=== PATIENT | male | born 1995 | race Caucasian/White ===

== ENCOUNTER 2019-06-02 17:53 | Emergency (ER) | payer MEDICAID ==
[~2019-06-02] VITALS: Ht 167.6 cm; Wt 73.0 kg
[2019-06-02 19:30] VITALS: BP 133/94
== END 2019-06-02 20:03 | disposition home or self-care (01) ==
LOC: ED 19:57
DX: F41.1 Generalized anxiety disorder (principal); B35.6 Tinea cruris; F43.10 Post-traumatic stress disorder, unspecified; Z87.891 Personal history of nicotine dependence
CPT/HCPCS: 99284

== ENCOUNTER 2019-08-31 10:12 | Emergency (ER) | payer MEDICAID ==
[~2019-08-31] VITALS: Ht 172.7 cm; Wt 75.9 kg
[2019-08-31 10:22] VITALS: BP 133/87
--- NOTE | 2019-08-31 11:25 | NUR ---
Patient/Caregiver given discharge instructions and they have confirmed that they understand the instructions. Patient ambulatory with steady gait. PT LEFT WITH ALL PERSONAL BELONGINGS.
== END 2019-08-31 11:27 | disposition home or self-care (01) ==
LOC: ED 11:00
DX: R05 Cough (principal); F43.10 Post-traumatic stress disorder, unspecified
CPT/HCPCS: 71046; 99283

== ENCOUNTER 2019-12-29 15:21 | Emergency (ER) | payer MEDICAID ==
[~2019-12-29] VITALS: Ht 167.6 cm; Wt 78.0 kg
--- NOTE | 2019-12-29 16:00 | NUR ---
PT VSS, ER PA DISCUSSED WITH PT AND [facility] STAFF THAT IT IS VERY NORMAL FOR AN INDIVIDUAL TO HAVE SYMPTOMS OF ANXIETY AND INCREASED DEPRESSION AFTER LOSING SOMEONE CLOSE TO THEM. PT CALM AT THIS TIME AND NO S/S OF ANXIETY. PT VERBALIZES UNDERSTANDING AND STATES THAT HE HAS A FRIEND THAT HE IS ABLE TO DISCUSS HIS FEELINGS WITH. RB REFERAL ALSO PROVIDED.
[2019-12-29 16:39] VITALS: BP 148/90
[2019-12-29] MEDS ORDERED: METH54TA PO (16:39)
[2019-12-29] MEDS ORDERED: CLON0.2T PO (16:39)
[2019-12-29] MEDS ORDERED: NALT50TA PO (16:39)
[2019-12-29] MEDS ORDERED: PARO40TA3 PO (16:39)
--- NOTE | 2019-12-29 16:41 | NUR ---
Patient/Caregiver given discharge instructions and they have confirmed that they understand the instructions. Patient ambulatory with steady gait.
== END 2019-12-29 17:49 | disposition home or self-care (01) ==
LOC: ED 17:00
DX: F41.1 Generalized anxiety disorder (principal); F43.21 Adjustment disorder with depressed mood; F43.10 Post-traumatic stress disorder, unspecified
CPT/HCPCS: 99281